=== PATIENT | male | born 1950 | race Caucasian/White ===

== ENCOUNTER → 2020-02-08 | Outpatient (CLI) | payer MEDICARE | DX: R05 Cough (principal) ==

== ENCOUNTER → 2021-01-23 | Outpatient (CLI) | payer MEDICARE, OTHER | LOC: YCFC.O 16:37 | PROVIDERS: ATTEND Nurse Practitioner Family | DX: R53.81 Other malaise (principal); R53.83 Other fatigue; R04.0 Epistaxis; Z72.51 High risk heterosexual behavior ==